=== PATIENT | male | born 1990 | race Two or more races ===

== ENCOUNTER 2025-04-17 20:41 | Emergency (ER) | payer BC ==
[~2025-04-17] VITALS: Ht 185.4 cm; Wt 91.0 kg
[2025-04-17 21:22] VITALS: TEMP 36.8; O2SAT 99
[2025-04-17] MEDS: BACITRACIN ZINC OINT UDPKT TOP ONE (23:30)
[2025-04-17] MEDS: LIDOCAINE HCL/PF 1% 10 MG/ML 5ML VIAL INFIL ONE (23:30)
[2025-04-17] MEDS: ACETAMINOPHEN 325MG TABLET PO ONE (23:59)
[2025-04-18] MEDS: TETANUS, DIPHTHERIA, PERTUSSIS VAC/PF 0.5ML (>10YR OLD) IM ONE (00:02)
[2025-04-18] MEDS ORDERED: BO1 TP (02:18)
[2025-04-18] MEDS ORDERED: CEPH500C2 MT (02:18)
[2025-04-18 02:41] VITALS: BP 122/66; PULSE 70; RESP 18; O2SAT 100
== END 2025-04-18 02:42 | disposition home or self-care (01) ==
LOC: ER 20:41
DX: S81.012A Laceration without foreign body, left knee, initial encounter (principal); Z79.899 Other long term (current) drug therapy; W19.XXXA Unspecified fall, initial encounter; Y93.89 Activity, other specified; Y92.89 Other specified places as the place of occurrence of the external cause; Y99.8 Other external cause status
CPT/HCPCS: 99283; 90715; 12004; 90471; J2003